=== PATIENT | female | born 1970 | race Caucasian/White ===

== ENCOUNTER → 2021-03-19 | Outpatient (CLI) | payer OTHER | LOC: LAB 09:52 → RAD 09:52 | DX: J44.9 Chronic obstructive pulmonary disease, unspecified (principal) | CPT/HCPCS: 71046 ==

== ENCOUNTER → 2021-10-22 | Outpatient (CLI) | payer SELFPAY | LOC: US 09:22 | DX: R94.5 Abnormal results of liver function studies (principal); K76.0 Fatty (change of) liver, not elsewhere classified | CPT/HCPCS: 76705 ==

== ENCOUNTER → 2021-11-20 | Outpatient (CLI) | payer OTHER | LOC: NM 14:12 | DX: R07.9 Chest pain, unspecified (principal) | CPT/HCPCS: 93017 ==

== ENCOUNTER → 2021-11-20 | Outpatient (CLI) | payer OTHER | LOC: HEART 5 15:23 | DX: R00.2 Palpitations (principal) ==